=== PATIENT | male | born 1950 | race Hispanic/Latino ===

== ENCOUNTER 2023-02-09 16:33 | Emergency (ER) | payer OTHER ==
[2023-02-09 17:47] LABS: #Basophils 0.1 10x3/uL (0.0-0.2); #Eosinphils 0.2 10x3/uL (0.0-0.5); #Monocytes 0.6 10x3/uL (0.0-1.1); #Neutrophils 2.6 10x3/uL (1.5-8.4); %Basophils 1.8 % (0.0-2.0); %Eosinophils 3.5 % (0.0-6.0); %Lymphocytes 38.7 % (18.0-47.0); %Monocytes 10.6 % (0.0-10.0); %Neutrophils 45.2 % (40.0-75.0); Hemoglobin 6.7 g/dL (13.5-17.5); Mean Corpuscular HGB CONC 27.9 g/dL (32.0-36.0); Mean Corpuscular Hemoglobin 18.8 pg (27.0-33.0); Mean Corpuscular Volume 67.4 fl (81.2-95.1); Mean Platelet Volume 9.1 fl (7.4-10.4); Platelet Count 253 10x3/uL (150-450); RBC Distribution Width 22.7 % (11.5-14.5); Red Blood Cell (RBC) Count 3.56 10x6/uL (4.32-5.72); White Blood Cell (WBC) Count 5.6 10x3/uL (3.5-10.5)
[2023-02-09 18:05] LABS: ALT (SGPT) 14 U/L (8-55); AST (SGOT) 24 U/L (5-34); Alkaline Phosphatase 77 U/L (40-110); Anion Gap 15 mmol/L (10-20); BUN (Urea Nitrogen) 17 mg/dL (8.4-25.7); Bilirubin, Total 0.5 mg/dL (0.2-1.2); Calc. Creatinine Clearance 0 mL/min (70-130); Calcium 9.3 mg/dL (7.8-10.44); Carbon Dioxide 21 mmol/L (23-31); Chloride 111 mmol/L (98-107); Estimated GFR 59; Globulin 3.7 g/dL (2.4-3.5); Glucose 100 mg/dL (83-110); Potassium 4.2 mmol/L (3.5-5.1); Protein, Total 7.7 g/dL (5.8-8.1); Sodium 143 mmol/L (136-145)
[2023-02-09 18:26] LABS: Anisocytosis SLIGHT = 6-15 cells (100X) (0-5/hpf); Hypochromia SLIGHT = 6-15 cells (100X) (0-5/hpf); Microcytosis SLIGHT = 6-15 cells (100X) (0-5/hpf); Target Cells SLIGHT = 2-5 cells (100X) (0-1/hpf)
[2023-02-09 18:26] LABS: SARS-CoV-2 NAA Rapid Test Not Detected (NotDetected)
[2023-02-09 18:28] LABS: Elliptocytes SLIGHT = 2-5 cells (100X) (0-1/hpf)
[2023-02-09 18:30] LABS: Platelet Morphology Comment Appears Adequate
[2023-02-09] MEDS ORDERED: hydrALAZINE 20 MG/ML VIAL ONE (19:05)
[2023-02-09] MEDS ORDERED: diphenhydrAMINE 50 MG/ML VIAL ONE (19:05)
[2023-02-09] MEDS ORDERED: methylPREDNISolone Sod Succ 40 MG VIAL ONE (19:05)
[2023-02-09] MEDS ORDERED: Famotidine/PF 20 mg/2ml Vial ONE (19:05)
== END 2023-02-09 21:56 | disposition home or self-care (01) ==
LOC: EEVIPCON 16:33 → CSHERS 16:33
DX: D64.9 Anemia, unspecified (principal); I10 Essential (primary) hypertension; I25.10 Atherosclerotic heart disease of native coronary artery without angina pectoris; E11.9 Type 2 diabetes mellitus without complications; K21.9 Gastro-esophageal reflux disease without esophagitis; E78.5 Hyperlipidemia, unspecified; J44.9 Chronic obstructive pulmonary disease, unspecified; Z87.891 Personal history of nicotine dependence; Z20.822 Contact with and (suspected) exposure to COVID-19; Z79.899 Other long term (current) drug therapy
CPT/HCPCS: 36415; 36430; 71260; 74177; 80053; 85025; 86850; 86900; 86901; 93005; 96374; 96375; J0360; J1200; J2920; P9016; S0028; U0002